=== PATIENT | male | born 1995 | race Caucasian/White ===

== ENCOUNTER 2021-08-01 20:03 | Emergency (ER) | payer BC ==
[~2021-08-01] VITALS: Ht 167.6 cm; Wt 72.0 kg
[2021-08-01 20:14] VITALS: BP 136/91
[2021-08-01] MEDS ORDERED: ONDA4TAB11 PO (20:55)
[2021-08-01] MEDS ORDERED: OMEP20CA14 MT (20:55)
== END 2021-08-01 21:57 | disposition home or self-care (01) ==
LOC: ER 20:03
DX: K21.9 Gastro-esophageal reflux disease without esophagitis (principal)
CPT/HCPCS: 93005; 99283